=== PATIENT | female | born 1975 | race Caucasian/White ===

== ENCOUNTER 2022-05-25 08:00 | Outpatient (RCR) | payer MEDICAID, SELFPAY ==
--- NOTE | 2022-05-10 14:21 | URNOTE ---
REceived request for prior auth for Triston [id number]. Per [employer] on behalf of [facility] this has been approved for 300mg on weeks 0,2,6 and then every 8 weeks thereafter for 6 months, 05/05/2022-10/31/2022. Auth #[id number]
[2022-05-12 08:40] VITALS: BP 112/72; PULSE 65; RESP 16; TEMP 36.6; O2SAT 100
[2022-05-12] MEDS: VEDOLIZUMAB 300 MG, TUBING SECONDARY 1 EACH in 0.9 % SODIUM CHLORIDE 250 ml 250 ML 510 MG IVPB (09:35)
[2022-05-25 08:00] VITALS: BP 98/63; PULSE 73; RESP 16; TEMP 36.4; O2SAT 99
[2022-05-25] MEDS: VEDOLIZUMAB 300 MG, TUBING SECONDARY 1 EACH in 0.9 % SODIUM CHLORIDE 250 ml 250 ML 510 MG IVPB (08:35)
--- NOTE | 2022-05-25 08:53 | ONC.NURNOTE ---
patient states having 8/10 small cramping bloody/ mucus stools a day since starting Entyvio. states usually has 20 stools a day. the difference is the blood and mucus. Dr. Navarrete called and stated go ahead and treat. he stated this is why she is on Entyvio.
[2022-05-25] MEDS: 0.9 % SODIUM CHLORIDE 250 ml IV (09:12)
[2022-05-25] MEDS: SODIUM CHLORIDE 0.9 % (FLUSH) 10 ML SYRINGE IVF (09:12)
== END 2022-06-04 23:59 | disposition home or self-care (01) ==
LOC: CCIC 08:00
PROVIDERS: PCP Family Medicine; Visit Provider Internal Medicine Gastroenterology
DX: K51.90 Ulcerative colitis, unspecified, without complications (principal)
CPT/HCPCS: 96365; J3380; J7050

== ENCOUNTER 2022-10-19 18:49 | Emergency (ER) | payer MEDICAID, SELFPAY ==
[2022-10-19 19:00] VITALS: BP 133/84; PULSE 89; RESP 16; TEMP 36.7; O2SAT 100
[2022-10-19 19:09] VITALS: BP 123/84; PULSE 89; RESP 18; TEMP 36.7; O2SAT 100; BMI 25.8
--- NOTE | 2022-10-19 19:38 | CRLHL7_ITS ---
For Patients: As a result of the Cures Act, medical imaging exams and procedure reports are released immediately into your electronic medical record. You may view this report before your referring provider. If you have questions, please contact your health care provider. INDICATION: Cough, fever. TECHNIQUE: PA and lateral chest radiographs. COMPARISON: 09/18/2015. FINDINGS: Diffuse bronchial wall thickening with minimal patchy opacities involving the bilateral lower lungs. No pneumothorax or pleural effusion. Normal cardiac and mediastinal contours. IMPRESSION: Diffuse bronchial wall thickening with minimal lower lung patchy opacities as may be seen with bronchitis/viral infection. Dictated by Arturo Dominique MD @ 10/19/2022 8:00:11 PM Dictated by: Arturo Dominique MD @ 10/19/2022 20:00:13 (Electronically Signed)
[2022-10-19 19:58] LABS: PCR FLU A POSITIVE PCR FLU A (Negative); PCR FLU B Negative PCR FLU B (Negative); PCR RSV Negative PCR RSV (Negative); SARS PCR* Negative SARS-CoV-2 (Negative)
--- NOTE | 2022-10-19 20:05 | ED_ITS ---
HPI - Fever General Date Seen: 10/19/22 Chief Complaint: Fever Stated Complaint: Short of breath, fever Time Seen by Provider: 10/19/22 19:02 Source: patient Mode of arrival: ambulatory Limitations: no limitations History of Present Illness HPI Narrative: Patient presents with a cough and a sore throat, she has had this now for 48 hours, she also has some centralized chest discomfort primarily when she coughs, she did receive influenza vaccine yesterday, along with COVID, and Pneumovax. She has a history of some immunosuppression, is on Remicade, along with AZT and prednisone for colitis. No leg swelling, no really purulence with the cough, denies any nausea vomiting, abdominal pain, previous history of recurrent pneumonias COPD, she does vape. MD elicited complaint: fever Context: sick contacts Relieving factors: acetaminophen Associated symptoms: chills, myalgias, headache and sore throat Related Data Home Medications Medication Instructions Recorded Confirmed mirtazapine 15 mg tablet 15 mg PO HS 05/11/22 10/19/22 oxcarbazepine 300 mg tablet 900 mg PO DAILY 05/11/22 10/19/22 suvorexant 20 mg tablet 20 mg PO HS 05/11/22 10/19/22 vortioxetine 20 mg tablet 20 mg PO DAILY 05/11/22 10/19/22 (Trintellix) azathioprine 50 mg tablet 50 mg PO DAILY 10/19/22 10/19/22 balsalazide 750 mg capsule 750 mg PO DAILY 10/19/22 10/19/22 hydroxyzine HCl 25 mg tablet 25 mg PO TID PRN 10/19/22 10/19/22 Previous Rx's Medication Instructions Recorded ondansetron 4 mg disintegrating 4 mg PO BID-TID PRN nausea and 10/19/22 tablet vomiting #14 tabs oseltamivir 75 mg capsule (Tamiflu) 75 mg PO BID 5 days #10 caps 10/19/22 prednisone 50 mg tablet 50 mg PO DAILY #7 tabs 10/19/22 Allergies Allergy/AdvReac Type Severity Reaction Status Date / Time No Known Drug Allergies Allergy Verified 10/19/22 19:15 [facility] Medical History (Updated 10/19/22 @ 20:40 by Delfino Harmon MD) Agoraphobia Avoidant personality disorder Depression KARENA (generalized anxiety disorder) Methamphetamine abuse in remission PTSD (post-traumatic stress disorder) Schizoid personality disorder Social anxiety disorder Ulcerative colitis Social History Smoking Status: Former smoker Do you use any of these nicotine containing products: E-Cigarettes Second hand tobacco smoke exposure: No How often do you have a drink containing alcohol: never How often do you have six or more drinks on one occasion: Never AUDIT-C Alcohol total score: 0 Non-prescribed substance use: denies use Exam Const Vital Signs, click to edit/add: Vital Signs - 24 hr 10/19/22 19:09 10/19/22 19:00 10/19/22 20:35 Temperature 98.0 F 98.0 F 98.6 F Pulse Rate [Right Pulse Oximeter] 89 89 88 Respiratory Rate 18 16 18 Blood Pressure [Right Arm] 133/84 Blood Pressure [Right Upper Arm] 123/84 134/69 Pulse Oximetry 100 100 Oxygen Delivery Method Room Air Room Air Course Course Hospital Course: Patient would like to go home, I do not think this is unreasonable, her chest x- ray looks good she is influenza A positive, she initially did want to take cam of fluid but after discussion she agreed to take it, as she is immunocompromised, I also think she should take stress dose steroids, and also prescription for Zofran. Is high risk and I would like her seen in 48 hours by her primary care physician, we went over signs and symptoms of worsening where she should come back here to the emergency room if these occur. Regular does Tylenol would also be helpful. She would like to leave before her strep swab is back, we will call her if it is positive so we can treat her Vital Signs Vital signs: Initial Vital Signs Temperature 98.0 F 10/19/22 19:00 Temperature Source Temporal Artery Scan 10/19/22 19:00 Pulse Rate 89 10/19/22 19:00 Respiratory Rate 16 10/19/22 19:00 Respiratory Effort Spontaneous 10/19/22 19:00 Respiratory Depth Normal 10/19/22 19:00 Respiratory Pattern 10/19/22 19:00 Blood Pressure 133/84 10/19/22 19:00 Blood Pressure Mean 100 10/19/22 19:00 Blood Pressure Position Sitting 10/19/22 19:00 Pulse Oximetry 100 10/19/22 19:00 Oxygen Delivery Method 10/19/22 19:00 Sepsis Recent Fever Within 48 Hours No 10/19/22 19:00 Sepsis New/Unexplained Change in Mental Status No 10/19/22 19:00 Sepsis Action Taken by Nursing No Action Required 10/19/22 19:00 Vital Signs Temperature 98.0 F 10/19/22 19:00 Pulse Rate 89 10/19/22 19:00 Respiratory Rate 16 10/19/22 19:00 Blood Pressure 133/84 10/19/22 19:00 Pulse Oximetry 100 10/19/22 19:00 Oxygen Delivery Method 10/19/22 19:00 Temperature 98.6 F 10/19/22 20:35 Pulse Rate 88 10/19/22 20:35 Respiratory Rate 18 10/19/22 20:35 Blood Pressure 134/69 10/19/22 20:35 Pulse Oximetry 100 10/19/22 19:09 Oxygen Delivery Method 10/19/22 19:09 MDM - Fever MDM Narrative Medical decision making narrative: Life-threatening differential diagnosis is include meningitis, encephalitis, pneumonia, intra-abdominal infection, bacteremia, other differential diagnosis include but are not limited to viral upper respiratory tract infection, strep, urinary tract infection, skin infection, osteomyelitis, influenza, fungal infections, diskitis, epidural abscess, or fever of unknown origin. Medical Records Attestation: I reviewed the patient's medical records. Lab Data Attestation: I reviewed the patient's lab results. Labs: Lab Results 10/19/22 Range/Units 19:08 SARS-CoV-2 (PCR) Negative SARS-CoV-2 (Negative) Influenza Type A (PCR) POSITIVE PCR FLU A A (Negative) Influenza Type B (PCR) Negative PCR FLU B (Negative) RSV (PCR) Negative PCR RSV (Negative) Imaging Data Chest x-ray: Attestation: I have reviewed the pertinent imaging results. My impression: I do not see any acute findings Radiologist's impression: Patient: LAINEY AMBROCIO Facility: [facility] Site . Site : 1975 Study: XRay Chest 2 VIEWS-10/19/2022 7:56:12 PM Ordering Physician: Faustino Saleh Final Report: INDICATION: Cough, fever. TECHNIQUE: PA and lateral chest radiographs. COMPARISON: 09/18/2015. FINDINGS: Diffuse bronchial wall thickening with minimal patchy opacities involving the bilateral lower lungs. No pneumothorax or pleural effusion. Normal cardiac and mediastinal contours. IMPRESSION: Diffuse bronchial wall thickening with minimal lower lung patchy opacities as may be seen with bronchitis/viral infection. Dictated by Arturo Dominique MD @ 10/19/2022 8:00:11 PM Dictated by: Arturo Dominique MD @ 10/19/2022 20:00:13 (Electronic Signature) ECG Data Attestation: I personally reviewed and interpreted this ECG as follows: ECG interpretation date: 10/19/22 Prior ECG tracings: not available for review Interpretation: EKG shows normal sinus rhythm, normal EKG no acute ST wave changes, normal intervals Discharge Plan Discharge Clinical Impression: Influenza A, Viral infection Patient Disposition: Home, Self-Care Condition: Stable Instructions: Influenza (DC), Influenza (ED), Viral Syndrome (ED), Droplet Precautions (ED) Additional Instructions: Home rest use of stress dose prednisone, prescription given Zofran for nausea vomiting, prescription for Tamiflu, as your high risk with history of the immu nosuppression, recommend follow-up with primary care in 2 days time for recheck return to the ER if increasing shortness of breath coughing wheezing, regular acetaminophen would also be helpful 1 g p.o. t.i.d. Prescriptions: New prednisone 50 mg tablet 50 mg PO DAILY Qty: 7 0RF ondansetron 4 mg tablet,disintegrating 4 mg PO BID-TID PRN (Reason: nausea and vomiting) Qty: 14 0RF oseltamivir [Tamiflu] 75 mg capsule 75 mg PO BID 5 Days Qty: 10 0RF No Action azathioprine 50 mg tablet 50 mg PO DAILY balsalazide 750 mg capsule 750 mg PO DAILY hydroxyzine HCl 25 mg tablet 25 mg PO TID PRN Label Comments: TAKE 1 TO 2 TABLET UP TO THREE TIMES DAILY NEEDED FOR ISOMINA mirtazapine 15 mg tablet 15 mg PO HS oxcarbazepine 300 mg tablet 900 mg PO DAILY suvorexant 20 mg tablet 20 mg PO HS Trintellix 20 mg tablet 20 mg PO DAILY Follow Up/Referrals: Lily Paige MD [Primary Care Provider] - Stand Alone Forms: [employer] Info Instructions
[2022-10-19] MEDS: OSELTAMIVIR PHOSPHATE 75 MG CAPSULE PO (20:24)
[2022-10-19 20:35] VITALS: BP 134/69; PULSE 88; RESP 18; TEMP 37
[2022-10-19 20:49] LABS: Strep A DNA Probe* NOT DETECTED (Not Detectd)
--- NOTE | 2022-10-19 21:13 | ED.NURSE ---
phone call, pt answered, updated on negative strep test/.
== END 2022-10-19 20:36 | disposition home or self-care (01) ==
PROVIDERS: Emergency Provider Family Medicine; PCP Family Medicine
DX: J09.X2 Influenza due to identified novel influenza A virus with other respiratory manifestations (principal)
CPT/HCPCS: 71046; 87502; 87634; 87635; 87651; 99284; A9270

== ENCOUNTER 2022-12-05 08:00 | Outpatient (RCR) | payer MEDICAID, SELFPAY ==
[2022-06-23 08:26] VITALS: BP 100/73; PULSE 72; RESP 16; TEMP 36.3; O2SAT 100
[2022-06-23] MEDS: VEDOLIZUMAB 300 MG, TUBING SECONDARY 1 EACH in 0.9 % SODIUM CHLORIDE 250 ml 250 ML 510 MG IVPB (08:59)
--- NOTE | 2022-07-27 13:56 | URNOTE ---
Request received for Inflectra for Ulcerative colitis. Per are site No prior required per Medical Injectable Drug Authorization List.
[2022-08-18 07:57] VITALS: BP 110/71; PULSE 80; RESP 16; TEMP 36.8
[2022-08-25 07:47] VITALS: BP 124/62; PULSE 88; RESP 18; TEMP 36.2; O2SAT 98
[2022-08-25 09:08] VITALS: BP 111/72; PULSE 76; RESP 16; TEMP 37.4; O2SAT 99
[2022-09-12 09:34] VITALS: BP 104/67; PULSE 78; RESP 18; TEMP 36.3; O2SAT 100
[2022-09-12 10:41] LABS: SARS PCR* Negative SARS-CoV-2 (Negative)
[2022-10-10 08:07] VITALS: BP 128/70; PULSE 78; RESP 16; TEMP 37.4; O2SAT 99
[2022-10-10] MEDS: 0.9 % SODIUM CHLORIDE 250 ml 250 ML 35 ML IV (08:46)
[2022-12-05 08:15] VITALS: BP 113/76; PULSE 80; RESP 18; TEMP 36.5; O2SAT 100
[2022-12-05] MEDS: 0.9 % SODIUM CHLORIDE 250 ml 250 ML 35 ML IV (08:45)
--- NOTE | 2022-12-05 12:55 | ONC.NURNOTE ---
Received phone call from Dr. Lyons office in regards to fax sent with [employer] documentation. Patient stated that she is having more diarrhea, with color changes the week before she comes back in for her next infusion. Nursing states that last documented conversation between patient and Dr. Navarrete was that patient was to try immodium and if diarrhea not resolved, to come in for stool sample. She will call patient and have discussion, and talk with Dr. Navarrete when he returns next week.
--- NOTE | 2022-12-14 11:11 | URNOTE ---
Request received for Inflectra ([id number]), for Ulcerative colitis (K51.90). Per [facility] site No prior required per Medical Injectable Drug Authorization List.
== END 2022-12-20 23:59 | disposition home or self-care (01) ==
LOC: CCIC 08:00
PROVIDERS: Clinical Nurse Specialist; PCP Family Medicine; Referring Provider Family Medicine; Visit Provider Internal Medicine Gastroenterology
DX: K51.90 Ulcerative colitis, unspecified, without complications (principal)
CPT/HCPCS: 87635; 96365; 96413; 96415; Q5103; J3380; J7050

== ENCOUNTER 2023-06-01 08:00 | Outpatient (RCR) | payer MEDICAID, SELFPAY ==
[2023-06-01 08:12] VITALS: BP 101/67; PULSE 77; RESP 16; TEMP 36.6; O2SAT 99
[2023-06-01] MEDS: 0.9 % SODIUM CHLORIDE 250 ml 250 ML 35 ML IV (09:02)
[2023-06-01 11:00] LABS: Hepatitis B Surface Antigen* Negative (Negative)
[2023-06-01 11:09] LABS: HIV 1/2/P24 Combo Screen* Negative (Negative)
[2023-06-01 11:16] LABS: Hepatitis C Virus Antibody* Negative (Negative)
--- NOTE | 2023-07-27 09:39 | ONC.NURNOTE ---
Pt did not show up for Inflectra appt this am. Left message for pt to reschedule.
== END 2023-08-01 23:59 | disposition home or self-care (01) ==
LOC: CCIC 08:00
PROVIDERS: PCP Family Medicine; Referring Provider Family Medicine; Visit Provider Internal Medicine Gastroenterology
DX: K51.90 Ulcerative colitis, unspecified, without complications (principal)
CPT/HCPCS: 36415; 86703; 86803; 87340; 96413; 96415; Q5103; J7050

== ENCOUNTER 2023-10-05 08:00 | Outpatient (RCR) | payer MEDICAID, SELFPAY ==
[2023-08-10 09:05] VITALS: BP 107/75; PULSE 82; RESP 16; TEMP 37.1; O2SAT 97
[2023-08-10] MEDS: 0.9 % SODIUM CHLORIDE 250 ml 250 ML 35 ML IV (10:11)
[2023-10-05 08:28] VITALS: BP 121/75; PULSE 78; RESP 16; TEMP 36.8; O2SAT 98
[2023-10-05] MEDS: 0.9 % SODIUM CHLORIDE 250 ml 250 ML 35 ML IV (09:35)
== END 2024-02-06 23:59 | disposition home or self-care (01) ==
LOC: CCIC 08:00
PROVIDERS: PCP Family Medicine; Referring Provider Family Medicine; Visit Provider Internal Medicine Gastroenterology
DX: K51.90 Ulcerative colitis, unspecified, without complications (principal)
CPT/HCPCS: 96365; 96366; 96413; 96415; Q5103; J7050

== ENCOUNTER 2023-12-23 17:05 | Emergency (ER) | payer MEDICAID, SELFPAY ==
[2023-12-23 17:10] VITALS: BP 120/80; PULSE 82; RESP 16; TEMP 37.6; O2SAT 100; BMI 23.6
--- NOTE | 2023-12-23 17:30 | XR_ITS ---
Final Report Patient: LAINEY AMBROCIO Facility:?[facility] Patient ID:?[id number] Site Patient ID:?[id number]. Site :?[id number] Study:?XRay Extremity Right FINGER 3V-12/23/2023 5:56:14 PM Ordering Physician:CARROLL Final Report: Indication: Finger injury. Technique: Right 3rd finger 3 views. Comparison: None. Findings/Impression: Bones: Alignment is normal. No fractures or bone lesions. No sign of acute injury. Joint spaces: Unremarkable. Soft tissues: Marked soft tissue swelling around the proximal IP joint. Dictated by Morales Jackson MD @ 12/23/2023 8:37:50 PM (Electronic Signature)
--- NOTE | 2023-12-23 17:31 | ED.UPPEXIN ---
HPI - Extremity Injury (Upper) General Chief Complaint: Extremity Pain/Injury, Upper Stated Complaint: R middle finger jammed-needs ring cut off Time Seen by Provider: 12/23/23 17:12 History of Present Illness HPI narrative: This 48-year-old female comes in with an injury to her right middle finger that occurred 3 days ago. 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 She has a previous injury to this finger but comes in today also because the swelling is putting pressure on a ring that she had on this finger. She states that she needs to have the ring removed. Related Data Home Medications Medication Instructions Recorded Confirmed mirtazapine 15 mg tablet 15 mg PO HS 05/11/22 08/10/23 oxcarbazepine 300 mg tablet 900 mg PO DAILY 05/11/22 08/10/23 suvorexant 20 mg tablet 20 mg PO HS 05/11/22 08/10/23 vortioxetine 20 mg tablet 20 mg PO DAILY 05/11/22 08/10/23 (Trintellix) balsalazide 750 mg capsule 750 mg PO DAILY 10/19/22 08/10/23 hydroxyzine HCl 25 mg tablet 25 mg PO TID PRN 10/19/22 08/10/23 gabapentin 100 mg capsule 100 mg PO QPM 08/10/23 08/10/23 Allergies Allergy/AdvReac Type Severity Reaction Status Date / Time No Known Drug Allergies Allergy Verified 12/23/23 17:10 Review of Systems Status of ROS: Reports: 10 or more systems reviewed and unremarkable except as noted in History and below Narrative: Constitutional: No fevers, no weight gain or loss. Eyes: No discharge. No vision changes. HENT: No congestion, no sore throat, no ear pain. Cardiovascular: No chest pain, no palpitations. Respiratory: No shortness of breath, no wheezes, no cough. Gastrointestinal: No abdominal pain, no vomiting, no diarrhea. Genitourinary: No dysuria, no hematuria. Musculoskeletal: Right middle finger injury as described above. Skin: No rashes, no pruritis. Neurological: No dizziness, weakness, sensory change, speech change. Endo/Heme/Allergies: No bruising or bleeding. No polydipsia. Pysch: no suicidality, no anxiety, no insomnia. All other systems reviewed and are negative. [facility] Medical History (Updated 12/23/23 @ 18:08 by Chris Aguila MD) Methamphetamine abuse in remission ?F15.11 - Other stimulant abuse, in remission (ICD-10) Depression ?F32.A - Depression, unspecified (ICD-10) Social anxiety disorder ?F40.10 - Social phobia, unspecified (ICD-10) Agoraphobia ?F40.00 - Agoraphobia, unspecified (ICD-10) KARENA (generalized anxiety disorder) ?F41.1 - Generalized anxiety disorder (ICD-10) PTSD (post-traumatic stress disorder) ?F43.10 - Post-traumatic stress disorder, unspecified (ICD-10) Avoidant personality disorder ?F60.6 - Avoidant personality disorder (ICD-10) Schizoid personality disorder ?F60.1 - Schizoid personality disorder (ICD-10) Ulcerative colitis ?K51.90 - Ulcerative colitis, unspecified, without complications (ICD-10) Social History Smoking Status: Former smoker Do you use any of these nicotine containing products: E-Cigarettes Second hand tobacco smoke exposure: No How often do you have a drink containing alcohol: never How often do you have six or more drinks on one occasion: Never AUDIT-C Alcohol total score: 0 Non-prescribed substance use: denies use Exam Narrative: Exam Narrative: Constitutional: Well-developed, well-nourished, no acute distress. HEENT: Normocephalic, atraumatic. Neck: Normal range of motion. Nontender. Supple. Heart: Intact distal pulses. Lungs: No chest discomfort. No wheezes, rhonchi, or rales. Abdomen: Nontender. Back: Normal range of motion. Extremities: Right middle finger has significant swelling at the PIP joint with erythema and decreased range of motion. Skin: Intact. No rash. Warm. No erythema or pallor. Neurologic: No altered sensation. No weakness. Alert and oriented. Psychiatric: No suicidality. No anxiety or depression. No insomnia. Nursing notes and vitals signs are reviewed. Const: Vital Signs, click to edit/add: Vital Signs - 24 hr 12/23/23 17:10 Temperature 99.7 F H Pulse Rate [Pulse Oximeter] 82 Respiratory Rate 16 Blood Pressure [Le ft Upper Arm] 120/80 Pulse Oximetry 100 Oxygen Delivery Me thod Room Air Course Vital Signs Vital signs: Initial Vital Signs Temperature 99.7 F H 12/23/23 17:10 Temperature Source Temporal Artery Scan 12/23/23 17:10 Pulse Rate 82 12/23/23 17:10 Respiratory Rate 16 12/23/23 17:10 Blood Pressure 120/80 12/23/23 17:10 Blood Pressure Mean 93 12/23/23 17:10 Blood Pressure Position Sitting 12/23/23 17:10 Pulse Oximetry 100 12/23/23 17:10 Oxygen Delivery Method Room Air 12/23/23 17:10 Vital Signs Temperature 99.7 F H 12/23/23 17:10 Pulse Rate 82 12/23/23 17:10 Respiratory Rate 16 12/23/23 17:10 Blood Pressure 120/80 12/23/23 17:10 Pulse Oximetry 100 12/23/23 17:10 Oxygen Delivery Method Room Air 12/23/23 17:10 Temperature 99.7 F H 12/23/23 17:10 Pulse Rate 82 12/23/23 17:10 Respiratory Rate 16 12/23/23 17:10 Blood Pressure 120/80 12/23/23 17:10 Pulse Oximetry 100 12/23/23 17:10 Oxygen Delivery Method Room Air 12/23/23 17:10 MDM - Extremity Injury (Upper) MDM Narrative Medical decision making narrative: This patient comes in requesting a removal of a ring from her finger that was jammed 3 days ago. She has significant swelling and decreased range of motion of the PIP joint of her right middle finger. The ring was removed and an x-ray is obtained. By my review there is no sign of dislocation or fracture. Radiology report is pending. 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 Discharge Plan Discharge Clinical Impression: Finger sprain Patient Disposition: Home, Self-Care Condition: Stable Additional Instructions: Use splint as needed and directed. Use [id number] medicines also as needed. Follow up with MD return if worsening. Prescriptions: No Action balsalazide 750 mg capsule 750 mg PO DAILY hydroxyzine HCl 25 mg tablet 25 mg PO TID PRN Patient Comments: TAKE 1 TO 2 TABLET UP TO THREE TIMES DAILY NEEDED FOR ISOMINA gabapentin 100 mg capsule 100 mg PO QPM mirtazapine 15 mg tablet 15 mg PO HS oxcarbazepine 300 mg tablet 900 mg PO DAILY suvorexant 20 mg tablet 20 mg PO HS Trintellix 20 mg tablet 20 mg PO DAILY Follow Up/Referrals: Lily Paige MD [Primary Care Provider] - Stand Alone Forms: [employer] Info Instructions
--- OUTSIDE RECORDS SUMMARY | 2023-12-23 17:50 | XMS_ITS | Clinical Summary ---
Author Name Unknown Organization [employer] [facility] Address [place], [place] [address] Care Team Providers Care Sewer Connector Name Role Phone 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 Blood Product orders may be delayed. Draw one red top and two purple top tubes for ALL Type and Screen/ Type and Crossmatch orders. Medications Medication Sig Dispensed Refills Start Date End Date Status OXcarbazepine (TRILEPTAL) 600 mg tablet TK 1 AND 1/2 TS PO QAM 3 10/31/2018 Active BELSOMRA 20 mg tablet TK 1 T PO HS 2 11/01/2018 Active TRINTELLIX 20 mg tab TK 1 T PO QD 2 10/31/2018 Active mirtazapine (REMERON) 30 mg tablet Take 30 mg by mouth at bedtime. 0 04/02/2022 Active hydrOXYzine HCL (ATARAX) 25 mg tablet MAY TAKE 1 TO 2 TABLETS BY MOUTH UP TO THREE TIMES DAILY NEEDED 0 02/10/2022 Active balsalazide (COLAZAL) 750 mg capsuleIndications :Ulcerative colitis without complications, unspecified location (HC) Take 3 Capsules (2,250 mg) by mouth 3 times daily. 270 Capsule 11 05/02/2022 Active predniSONE (DELTASONE) 5 mg tabletIndications: Diarrhea, unspecified type,Ulcerative colitis without complications, unspecified location (HC),Hematochezia take 4 tablets by oral route once daily for 2 weeks, 3 tablets per day for 1 week, 2 tablets per day for 1 week, 1 tablet per day for 1 week 98 Tablet 0 10/02/2023 Active gabapentin (NEURONTIN) 100 mg capsule 0 10/11/2023 Active tofacitinib (Xeljanz) 10 mg tab tabletIndications: Ulcerative colitis without complications, unspecified location (HC),Diarrhea, unspecified type,Hematochezia 10 mg tablet twice daily by mouth for 8 weeks, then 5 mg twice daily for remaining year 60 Tablet 11 11/16/2023 Active tofacitinib (Xeljanz) 5 mg tab tabletIndications: Ulcerative colitis without complications, unspecified location (HC) Take 1 Tablet (5 mg) by mouth two times daily. 60 Tablet 11 11/27/2023 Active tofacitinib (Xeljanz XR) 22 mg Tb24 extended release tabletIndications: Diarrhea, unspecified type,Hematochezia, Chronic pancolonic ulcerative colitis (HC) Take 1 Tablet (22 mg) by mouth once daily. 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 Overview: Age 15-19, mild, did not need treatment Encounters Date Type Department Care Team Description 11/28/2023 Telephone [facility] [address] [place] [address] Chris Navarrete MD Prior Authorization (tofacitinib (Xeljanz) 5 mg tab tablet Approved December 03, 2023 to January 28, 2024) 11/28/2023 Telephone [facility] [address] [place] [place] [address] Chris Navarrete MD Prior Authorization (tofacitinib (Xeljanz) 10 mg tab tablet APPEAL APPROVED 12/03/23-02/01/24) 11/23/[address] [place] [address] Chris Navarrete MD Medication Management 11/07/[address] [place] [address] Chris Navarrete MD Prior Authorization (tofacitinib (Xeljanz XR) 22 mg Tb24 extended release tablet APPEAL APPROVED 12/03/2023-12/03/2024 ) 10/22/[address] [place] [address] Chris Navarrete MD Medication Management 10/19/2023 9:10 AM DIETITIAN TEACHING Orders Only [address] [place] [address] Lab, [facility] 10/19/2023 Travel 10/17/2023 10:30 AM DIETITIAN TEACHING Procedure Only [address] [address] Chris Navarrete MD Procedure (Flex sig) 10/17/2023 Travel 10/12/[address] [address] Chris Navarrete MD Appointment (Cancel - Gastro) 10/09/[address] [address] Chris Navarrete MD Questions 10/01/[address] [address] Chris Navarrete MD Medication Management from Last 3 Months Immunizations Name Administration Dates Next Due COVID-19 vaccine (Moderna 10 0mcg/0.5mL) PF, MDV 03/26/2021,02/26/2021 COVID-19 vaccine (Moderna 50 mcg/0.5mL) 12YO+ BIVALENT PF, MDV 10/18/2022 Influenza, IIV4 10/18/2022,07/29/2019,10/03/2016 Influenza, IIV4 (=>6mos) MDV 12/01/2017 Pneumococcal Conj 20-valent (Prevnar 20) 022 Family History Medical History Relation Name Comments Alcoholism Father Cancer-breast Maternal Aunt Alcoholism Maternal Grandfather Alcoholism Mother Arthritis Mother rheumatoid Asthma Mother Cancer-ovarian No Family History Relation Name Status Comments Father Maternal Aunt Maternal Grandfather Mother Social History Tobacco Use Types Packs/Day Years Used Date Smoking Tobacco: Former Cigarettes 23 0 11/05/1992 - 11/05/2015 Smokeless Tobacco: Never Tobacco Cessation:Counseling Given: Yes Comments:vaping every day x 3 years Alcohol Use Standard Drinks/Week Comments No 0 (1 standard drink = 0.6 oz pure alcohol) prior abuse, sober since Dec 2014 PHQ-2 Answer Date Recorded PHQ-2 Score 2 01/07/2019 Social Connections Answer Date Recorded Frequency of Communication with Friends and Fami ly Not on file 04/19/2023 Financial Resource Strain Answer Date R ecorded Difficulty of Paying Living Expenses 3 04/17/2022 Difficulty of Paying Living Expenses Not on file 04/17/2022 Food Insecurity Answer Date Recorded Worried About Running Out of Food in the Last Ye ar 1 04/17/2022 Transportation Needs Answer Date Record ed Lack of Transportation (Medical) 1 04/17/2022 Housing Stability Answer Date Recorded Unable to Pay for Housing in the Last Year 1 04/17/2022 Sex and Gender Information Value Date Recorded Sex Assigned at Female 07/24/2020 7:27 PM CDT Gender Identity Female 07/24/2020 7:27 PM CDT Sexual Orientation Straight 07/24/2020 7: 27 PM CDT Obstetrics History Para Term AB IAB SAB Ectopic Multiple Livin g Live Births 8 4 4 2 4 Date Outcome GA Total Labor Labor/2nd/3rd Weight Sex Delivery Anes PTL Nelia A1 A5 Name Cl in Term Term Term Term AB AB Last Filed Vital Signs Vital Sign Reading Time Taken Comments Blood Pressure 135/77 10/17/2023 10:45 AM DIETITIAN TEACHING Pulse 90 10/17/2023 10:45 AM DIETITIAN TEACHING Temperature 37.7 ??C (99.8 ??F) 04/12/2021 4:22 PM CD T Respiratory Rate 18 10/02/2016 4:53 PM DIETITIAN TEACHING Oxygen Saturation 100% 10/17/2023 10:45 AM DIETITIAN TEACHING Inhaled Oxygen Concentration - - Weight 73.7 kg (162 lb 6.4 oz) 05/02/2022 1:01 P M CDT Height 175.3 cm (5' 9) 08/26/2021 9:49 AM CDT Body Mass Index 23.98 08/26/2021 9:49 AM CDT Plan of Treatment Health Maintenance Due Date Last Done Comments Tdap 1988 Tetanus booster 1997 Pap test for age 21-65 1998 Depression screening for age 12+ 01/24/2019 01/24/2018, 12/13/2017, 11/13/2017, Additional history exists Lipids for age 45-75 2022 12/12/2016 Mammogram for age 45-75 2022 11/19/2019 BMI (ht and wt on same day) for age 18+ 08/26/2022 08/26/2021, 04/12/2021, 09/13/2020, Additional history exists COVID-19 vaccine series ( season) 2023 10/18/2022, 03/26/2021, 02/26/2021 Influenza for age 9-49 07/06/2023 , 07/29/2019, 12/01/2017, Additional history exists Colonoscopy through age 75 04/21/202704/21, 04/21/2022, 02/24/2016 HIV for age 15-65 Completed 06/25/2018, 01/23/2017 Hepatitis C screening for ag e 18-79 Completed 06/25/2018, 01/23/2017 Pneumococcal series for age 6-64 Completed 10/18/20 22 Procedures Procedure Name Priority Date/Time Associated Diagnosis Comments CLOSTRIDIOIDES DIFFICILE TOXIN PCR Routine 10/19/2023 8:00 AM DIETITIAN TEACHING Diarrhea, unspecified type Ulcerative colitis without complications, unspecified location (HC) Hematochezia CLOSTRIDIOIDES DIFFICILE TOXIN PCR Routine 10/17/2023 11:30 AM DIETITIAN TEACHING Diarrhea, unspecified type Ulcerative colitis without complications, unspecified location (HC) Hematochezia PATH TISSUE EXAM Routine 10/17/2023 11:1 9 AM DIETITIAN TEACHING Diarrhea, unspecified type Ulcerative colitis without complications, unspecified location (HC) Hematochezia FLEXIBLE SIGMOIDOSCOPY 10:41 AM DIETITIAN TEACHING FLEXIBLE SIGMOIDOSCOPY Routine 10:29 AM DIETITIAN TEACHING Diarrhea, unspecified type Ulcerative colitis without complications, unspecified location (HC) Hematochezia from Last 3 Months Results * CLOSTRIDIOIDES DIFFICILE TOXIN PCR (10/19/2023 8:00 AM DIETITIAN TEACHING) Only the most recent of2 resultswithin the time period is included. CLOSTRIDIUM DIFFICILE PCR Negative 10/19/2023 5:04 PM DIETITIAN TEACHING [facility] PRESUMPTIVE NAP1 STRAIN Negative 10/19/2023 5:04 PM [facility]IT[facility] TE[facility]ING [facility] Stool STOOL SPECIMEN / Unknown Non-Blood / Unknown 10/19/2023 8:00 AM DIETITIAN TEACHING 10/19/2023 9:22 AM DIETITIAN TEACHING Narrative [facility] - 10/19/2023 5:04 PM DIETITIAN TEACHING The NAP1 (027 or BI) strain is a hypervirulent strain. Detection may be useful for epidemiological purposes. Chris Navarrete MD MICROBIOLOGY [facility] [address] [place] [address], * PATH TISSUE EXAM (10/17/2023 11:19 AM DIETITIAN TEACHING) Case Report Pathology Report ?Case: [id number] ? Authorizing Provider: ??Chris Navarrete MD ?? Collected: ? 10/17/2023 1119 ? Ordering Location: ? [facility] ?? Received: ?10/17/2023 1535 ? Clinic ? Pathologist: ? Susan, Prem Menjivar, ? MD ? Specimen: ?Rectal Biopsy ? 3 11:21 AM DIETITIAN TEACHING [facility] Final Diagnosis A) RECTUM, BIOPSY: 1. Markedly active chronic colitis consistent with ulcerative colitis 2. Negative for dysplasia 3. CMV immunohistochemistry is negative 3 11:[address] [facility] Comment CMV immunohistochemistry interpreted by Dr. Archer. 3 11:[address] [facility] Clinical Information Ms. Yu is a 48 y.o. who presents with hematochezia, diarrhea, and personal history of ulcerative colitis. Flexible sigmoidoscopy reveals proctosigmoid ulcerative colitis with inflammation found from the rectum to the sigmoid colon that was severe. 3 11:[address] [facility] Gross Description A) Received in formalin are 8 gonzales mucosal fragments averaging 3 mm in greatest dimension, which are entirely submitted in one cassette. It is labeled with the patient's name and designated A. Danielle Vo 10/17/2023 9:15 PM 3 11:[address] [facility] Microscopic Description The final diagnosis is based on microscopic examination of appropriate sections of all specimens. 11:[address] [facility] Additional Information Interpreted at [facility] - [address] [facility] [address] [address] 3 11:[address] [facility] Other (Rectal Biopsy) Non-Blood / Unknown 10/17/2023 11:19 AM DIETITIAN TEACHING 10/17/2023 3:35 PM DIETITIAN TEACHING Chris Navarrete MD PATHOLOGY/CYTOLOG Y [facility] [address] [place] [address], * FLEXIBLE SIGMOIDOSCOPY (10/17/2023 10:41 AM DIETITIAN TEACHING) 10/17/2023 10:4 1 AM DIETITIAN TEACHING Narrative Transcriptions Chris Navarrete MD - 10/17/2023 11:31 AM CST Patient Name: Eduardo Yu Procedure Date: 10/17/2023 Gender: Female Date of : 1975 Admit Type: Outpatient Procedure: Flexible Sigmoidoscopy Proceduralist: Chris Navarrete MD , Estela Jim (Nurse), Nicolle Mayfield, ASIM (Nurse) Referring MD: Chris Navarrete Indications/Pre-Op Diagnosis: Hematochezia, Diarrhea, Personal history of ulcerative colitis Medications: None Procedure Description: The patient had risks, benefits and alternatives explained to andgave informed consent.The patient had a stable cardiopulmonary status and judged an adequate candidate for conscious sedation. The PCF-[id number] was introduced through the anus and advanced to the sigmoid colon. The flexible sigmoidoscopy was accomplishedwithout difficulty. The patient tolerated the procedure well. The quality ofthe bowel preparation was good. Complications: No immediate complications. Estimated Blood Loss & Specimen: Estimated blood loss: none. Specimen collected - Yes and sent to Laboratory Findings: The perianal and digital rectal examinations were normal. Inflammation characterized by erythema, friability, mucus andserpentine ulcerations was found in a continuous and circumferential patternfrom the rectum to the sigmoid colon. The inflammation was severe.Biopsies were taken with a cold forceps for histology. Fluid was sent for d difficle analysis. Impressions/Post-Op Diagnosis: - Proctosigmoid ulcerative colitis. Inflammation was found from the rectum to the sigmoid colon. This was severe. Biopsied. Recommendation: - Use prednisone 20 mg PO once a day for 2 weeks. Moderate Sedation: None Chris Navarrete MD 10/17/2023 11:31:01 AM This report has been signed electronically. Note Initiated On: 10/17/2023 10:41 AM Procedure Code(s): --- Professional --- 62880, Sigmoidoscopy, flexible; with biopsy, single or multiple Diagnosis Code(s): --- Professional --- K51.30, Ulcerative (chronic)rectosigmoiditis without complications K92.1, Melena (includes Hematochezia) R19.7, Diarrhea, unspecified Z87.19, Personal history of other diseasesof the digestive system CPT copyright 2021 [employer]. All rights reserved. The codes documented in this report are preliminary and upon printing equipment mechanic apprentice reviewmay be revised to meet current compliance requirements. Scope In: 11:17:01 AM Scope Out: 11:22:20 AM Chris Navarrete MD PROCEDURE ORD from Last 3 Months Additional Health Concerns Infection Onset Date Last Indicated Rule-Out Stool Pathogen 10/02/2023 10/02/20 Care Teams Sewer Connector Relationship Specialty Start Date End Date [facility] [address] [place] [address] PCP - General 10/02/23
== END 2023-12-23 18:13 | disposition home or self-care (01) ==
PROVIDERS: Emergency Provider Emergency Medicine Emergency Medical Services; PCP Family Medicine
DX: S63.612A Unspecified sprain of right middle finger, initial encounter (principal); W22.8XXA Striking against or struck by other objects, initial encounter
CPT/HCPCS: 29130; 73140; 99283; 99284

== ENCOUNTER 2024-09-29 18:45 | Outpatient (CLI) | payer MEDICAID, SELFPAY ==
--- OUTSIDE RECORDS SUMMARY | 2024-09-29 19:03 | XMS_ITS | Clinical Summary ---
Author Organization [facility] Address [place], [place] [address] Care Team Providers Care Master Ocean [employer] Name Role Phone Clinic, [facility] Primary Care Pr ovider Allergies Active Allergy Reactions Criticality Noted Date [...] Take 30 mg by mouth at bedtime. 04/02/2022 Active hydrOXYzine HCL (ATARAX) 25 mg tablet MAY TAKE 1 TO 2 TABLETS BY MOUTH UP TO THREE TIMES DAILY NEEDED 02/10/2022 Active predniSONE (DELTASONE) 5 mg tabletIndications:D iarrhea, unspecified type,Ulcerative colitis without complications, unspecified location (HC),Hematochezia take 4 tablets by oral route once daily for 2 weeks, 3 tablets per day for 1 week, 2 tablets per day for 1 week, 1 tablet per day for 1 week 98 Tablet 10/02/2023 Active Additional Information Patient not taking.Reported on 06/04/2024 gabapentin (NEURONTIN) 100 mg capsule 10/11/2023 Active pimecrolimus (ELIDEL) 1 % creamIndications:Fa cial rash Apply topically to affected area(s) two times daily. 30 g 5 01/28/2024 Active tofacitinib (Xeljanz XR) 22 mg Tb24 extended release tabletIndications:D iarrhea, unspecified type,Hematochezia,C hronic pancolonic ulcerative colitis (HC) Take 1 Tablet (22 mg) by mouth once daily. 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 Overview (05/03/2015): Age 15-19, mild, did not need treatment Immunizations Name Administration Dates Next Due COVID-19 [...] Years Used Date Smoking Tobacco: Former Cigarettes 0 11/05/1992 - 11/05/2015 Smokeless Tobacco: Never Tobacco Cessation:Counseling Given: Yes Comments:vaping every day x 3 years Alcohol Use Standard Drinks/Week Comments No 0 (1 standard drink = 0.6 oz pure alcohol) prior abuse, sober since Dec 2014 PHQ-2 Answer Date Recorded PHQ-2 TOTAL SCORE 3 01/28/2024 Social Connections Answer Date Recorded Frequency of [...] Outcome GA Total Labor Labor/2nd/3rd Weight Sex Type Anes PTL Nelia A1 A5 Name Clin Term Term Term Term AB AB Last Filed Vital Signs Vital Sign Reading Time Taken Comments Blood Pressure 99/66 02/20/2024 7:49 AM CDT Pulse 78 02/20/2024 7:49 AM CDT Temperature 37.7 C (99.8 F) 04/12/2021 4:22 PM CDT Respiratory Rate 16 01/28/2024 10:4 9 AM CDT Oxygen Saturation 100% 02/20/2024 7:4 9 AM CDT Inhaled Oxygen Concentration - - Weight 70.3 kg (155 lb) 02/20/2024 7:49 AM CDT Height 177.8 cm (5' 10) 01/28/2024 10: 49 AM CDT with tennis shoes on Body Mass Index 22.24 01/28/2024 10:49 AM CDT Plan of Treatment Health Maintenance Due Date Last Done Comments Tdap 1988 Tetanus booster 1997 Pap test for age 21-65 1998 Mammogram for age 45-75 2022 11/19/2019 COVID-19 vaccine series ( season) 2024 10/18/2022, 03/26/2021, 02/26/2021 Influenza for age 9-49 07/06/2024 , 07/29/2019, 12/01/2017, Additional history exists BMI (ht and wt on same day) for age 18+ 01/27/2025 01/28/2024, 08/26/2021, 04/12/2021, Additional history exists Depression screening for age 12+ 01/27/2025 01/28/2024, 01/28/2024, 01/23/2024, Additional history exists Colonoscopy through age 75 04/21/202704/21, 04/21/2022, 02/24/2016 Lipids for age 45-75 01/27/2029 01/28/2024, 12/12/19 17 HIV for age 15-65 Completed 06/25/2018, 01/23/2017 Hepatitis C screening for ag e 18-79 Completed 06/25/2018, 01/23/2017 Pneumococcal series for age 6-64 Completed 10/18/20 22 Procedures Procedure Name Priority Date/Time Associated Diagnosis Comments LIPID PANEL W REFLEX MEASURED LDL Routine 01/28/2024 3:20 PM CDT Diarrhea, unspecified type Ulcerative colitis without complications, unspecified location (HC) COLONOSCOPY 04/21/2022 7:38 AM CDT XR MAMMO BILAT SCREENING Routine 11/19/2019 5:26 PM TITLE I DIRECTOR Visit for screening mammogram ANTI HIV 1/2 Routine 06/25/2018 8:58 AM CDT Encounter for supervision of normal first in first trimester ANTI HCV Routine 06/25/2018 8:58 AM CDT Encounter for supervision of normal first in first trimester from Last 3 Months or Most Recently Relevant to Health Maintenance Results * (ABNORMAL) LIPID PANEL W REFLEX MEASURED LDL (01/28/2024 3:20 PM CDT) CHOLESTEROL,TOTAL 129 100 - 199 mg/dL 01/28/2024 11:17 PM CDT [facility] Comment: Cholesterol, Total Reference Ranges Desirable <200 mg/dL Borderline 200-239 mg/dL High >=240 mg/dL TRIGLYCERIDES 155(H) <150 mg/dL 01/28/2024 11:17 PM CDT [facility] HDL CHOLESTEROL 41 >40 mg/dL 11:17 PM CDT [facility] NON-HDL CHOLESTEROL 88 <145 mg/dl 01/28/2024 11:17 PM CDT [facility] CHOL/HDL RATIO 3.15 <4.50 01/28/2024 11:17 PM CDT [facility] LDL CHOLESTEROL 57 <=130 mg/dL 01/28/2024 11:17 PM CDT [facility] VLDL CHOLESTEROL 31(H) <=30 mg/dL 01/28/2024 11:17 PM CDT [facility] PROVIDER ORDERED STATUS RANDOM 01/28/2024 11:17 PM CDT [facility] Blood BLOOD SPECIMEN / Unknown Venipuncture / Unknown 01/28/2024 3:20 PM CDT 01/28/2024 3:21 PM CDT Chris Navarrete MD CHEMISTRY [facility] [address] [place] [address], [place] * COLONOSCOPY (04/21/2022 7:38 AM CDT) 04/21/2022 7:38 AM CDT Narrative Transcriptions Chris Navarrete MD - 04/21/2022 8:47 AM CDT Patient Name: Eduardo Yu Procedure Date: 04/21/2022 Gender: Female Date of : 1975 Admit Type: Outpatient Procedure: Colonoscopy Proceduralist: Chris Navarrete MD , Nicolle Mayfield RN(Nurse) Indications/Pre-Op Diagnosis: Evaluation of unexplained GI bleeding presenting with Hematochezia, Determineextent and severity of inflammatory bowel disease, Clinically significant diarrhea ofunexplained origin, Disease activity assessment ofchronic ulcerative proctosigmoiditis Medications: Fentanyl 200 micrograms IV, Midazolam 6 mgIV, The level of sedation administered wasmoderate Procedure Description: The patient had risks, benefits and alternatives explained to andgave informed consent. The patient had a stable cardiopulmonary status and judged an adequate candidate for conscious sedation. The Colonoscope was passed through the anus and advanced to 4 cm into the ileum. The colonoscopy was performed without difficulty. Thepatient tolerated the procedure well. The quality of the bowel preparationwas good. The ileocecal valve, appendiceal orifice, and rectum were photographed. Complications: No immediate complications. Estimated Blood Loss & Specimen: Estimated blood loss: none. Specimen collected - Yes and sent to Laboratory Findings: The perianal and digital rectal examinations were normal. The terminal ileum appeared normal. Inflammation was found in a continuous and circumferential patternfrom the anus to the splenic flexure. This was graded as Chairez Score 3 (severe, with spontaneous bleeding, ulcerations), and when comparedto the previous examination, the findings are worsened. Biopsies weretaken with a cold forceps for histology. Background biopsies were taken for histology with a cold forceps from the ascending colon, transverse colon, descending colon and rectosigmoid colon. These biopsyspecimens from the ascending colon, transverse colon, descending colon and rectosigmoid colon were sent to Pathology. A few small and large-mouthed diverticula were found in the entirecolon. The exam was otherwise without abnormality. Impressions/Post-Op Diagnosis: - The examined portion of the ileum was normal. - Severe (Chairez Score 3) left-sided ulcerative colitis, worsened since the last examination. Biopsied. - Mild diverticulosis in the entire examined colon. - The examination was otherwise normal. - Background biopsies were taken from the ascending colon, transverse colon, descending colon and rectosigmoid colon. Recommendation: - Patient has a contact number available for emergencies. The signsand symptoms of potential delayed complications were discussed with the patient. Return to normal activities tomorrow. Written discharge instructions were provided to the patient. - Resume previous diet. - Continue present medications. - Await pathology results. - Repeat colonoscopy is recommended. The colonoscopy date will be determined after pathology results from today's exam become available for review. - Return to GI clinic in 1 week. - Patient's sedation for a repeat study will require Anesthesia staff assistance. Moderate Sedation: Moderate (conscious) sedation was administered by the endoscopy nurse and supervised by the endoscopist. The following parameters were monitored: oxygen saturation, heart rate, respiratory rate, blood pressure, adequacy of pulmonary ventilation and reponse to care. Please refer to the patient's medical record flowsheets and nursing notes for moderate sedation details. Total physician intraservice time was 23 minutes. Chris Navarrete MD 04/21/2022 8:46:22 AM This report has been signed electronically. Note Initiated On: 04/21/2022 7:38 AM Procedure Code(s): --- Professional --- 66275, Colonoscopy, flexible; with biopsy, single or multiple Diagnosis Code(s): --- Professional --- K51.50, Left sided colitis withoutcomplications K92.1, Melena (includes Hematochezia) K52.3, Indeterminate colitis R19.7, Diarrhea, unspecified K51.30, Ulcerative (chronic)rectosigmoiditis without complications K57.30, Diverticulosis of large intestine without perforation or abscess withoutbleeding CPT copyright 2020 [employer]. All rights reserved. The codes documented in this report are preliminary and upon beef cattle specialist reviewmay be revised to meet current compliance requirements. Scope In: 8:17:45 AM Scope Withdrawal Time 0 hours 11 minutes 26 seconds Scope Out: 8:36:33 AM Chris Navarrete MD PROCEDURE ORD * XR MAMMO BILAT SCREENING (11/19/2019 5:26 PM TITLE I DIRECTOR) Anatomical Region Laterality Modality BREASTS, Breast Left, Breast Right Bilateral Mammography Impressions 11/20/2019 7:40 PM TITLE I DIRECTOR There is no radiographic evidence for malignancy. Recommend annual mammograms. A lay language report of this examination will be provided to the patient. MAMMOGRAM ASSESSMENT: ACR 1 Negative Narrative 11/20/2019 7:40 PM TITLE I DIRECTOR XR MAMMO BILAT SCREENING [[id number]] CLINICAL HISTORY: This is an asymptomatic 44 y.o. patient. INDICATION FOR EXAM: Mammogram Screening. TECHNIQUE: CC & MLO views were obtained. This digital study was evaluated with the assistance of Computer-Aided Detection. COMPARISON FILM: This is a baseline study. FINDINGS: Mammographically, the breast tissue is heterogeneously dense, which could obscure detection of small masses. There are no dominant masses, suspicious micro calcifications or areas of architectural distortion. Lily Paige MD MAMMO * ANTI HCV (06/25/2018 8:58 AM CDT) HEPATITIS C ANTIBODY Non-React musa Non-React musa 06/25/2018 2:53 PM CDT [facility] Comment:Antibodies to HCV no t detected; does not exclude the possibility of exposure to HCV. Blood BLOOD SPECIMEN / Unknown Venipuncture / Unknown 06/25/2018 8:58 AM CDT 06/25/2018 8:58 AM CDT [facility] [address] [place] [address], * ANTI HIV 1/2 (06/25/2018 8:58 AM CDT) HIV-1/HIV-2 ANTIBODY Non-Reacti ve Non-Reacti ve 06/25/2018 3:00 PM CDT [facility] Comment:HIV-1 p24 and HIV-1/ HIV-2 Ab not detected. Blood BLOOD SPECIMEN / Unknown Venipuncture / Unknown 06/25/2018 8:58 AM CDT 06/25/2018 8:58 AM CDT Tara CAMILO [facility] [address] [place] [address], from Last 3 Months or Most Recently Relevant to Health Maintenance Care Teams Master [employer] Relationship Specialty Start Date End Date Clinic, [facility] [address] [place], [place] [id number] PCP - General 10/02/23
== END 2024-09-29 18:46 | disposition home or self-care (01) ==
LOC: NFLDUCREF 19:01
PROVIDERS: Visit Provider Nurse Practitioner Family
DX: L02.13 Carbuncle of neck (principal)
CPT/HCPCS: 87070